=== PATIENT | male | born 1965 | race Caucasian/White ===

== ENCOUNTER 2016-06-22 09:24 | Observation (INO) | payer BC ==
[~2016-06-22] VITALS: Ht 185.4 cm; Wt 105.2 kg
[~2016-06-22 09:24] MED LIST: BP MED; BUSPAR10 MG PO; DAILY VALUE1 EACH PO; DIOVAN320 MG PO; KLONOPIN0.5 M1 PO; LEVAQUIN500 MG PO; LIDODERM 5% P1 PATCH TD; MOBIC15 MG PO; MOTRIN600 MG PO; MULTIPLE VITAM1 EACH PO; NAPROSYN500 MG PO; NAPROXEN500 MG PO; NORCO 7.5/321 TABLET PO; ONDANSETRON HCL4 MG PO; PERCOCET 5/31 TABLET PO; PREDNISONE5 M1 PO; PRILOSEC40 MG PO; SINGULAIR10 MG PO; SKELAXIN800 MG PO; TORADOL10 MG PO; TRAMADOL HCL50 MG PO; VALIUM5 MG PO; VOLTAREN75 MG PO; XANAX0.5 MG PO; XANAX1 MG PO; ZOFRAN ODT4 MG PO
[2016-06-22 10:27] LABS: HEMATOCRIT 44.8 % (38.0-50.0); MCH 29.9 PG (29.0-34.0); MCV 85.3 FL (86-99); MEAN PLAT.VOLUME 10.1 uM^3 (9.0-12.4); PLATELET COUNT 224 K/uL (156-360); RBC DIS.WIDTH-CV 12.8 % (11.8-14.6); RBC DIS.WIDTH-SD 39.5 % (39-53); RED BLOOD COUNT 5.25 M/uL (4.00-5.50); WHITE BLOOD COUNT 3.5 K/uL (4.1-10.2)
[2016-06-22 11:03] LABS: ANION GAP 8 MEQ/L (2-14); CHLORIDE 103 MEQ/L (99-109); POTASSIUM 4.3 MEQ/L (3.7-5.4); SAMPLE HEMOLYSIS CHECK 0; SAMPLE ICTERIC CHECK 0; SAMPLE LIPEMIA CHECK 0; SODIUM 138 MEQ/L (136-147)
[2016-06-22 11:08] LABS: GFR ESTIMATE (CALCULATED) > 59 mL/min/; GLUCOSE 105 mg/dL (70-99); UREA NITROGEN (BUN) 16 mg/dL (9-23)
[2016-06-22 11:11] LABS: TROP-I INTERPRETATION NEGATIVE; TROPONIN-I < 0.01 ng/mL (0.0-0.30)
[2016-06-22] MEDS ORDERED: DOXYCYCLINE MO100 MG PO (12:15)
[2016-06-22] MEDS ORDERED: LORAZEPAM0.5 MG PO (12:15)
[2016-06-22] MEDS ORDERED: DIVALPROEX SOD500 M1 PO (12:15)
[2016-06-22 13:02] LABS: HDL CHOLESTEROL 61 MG/DL (Desirable>=40); LDL CHOLESTEROL 142 mg/dL (Desirable<100); NON-HDL CHOLESTEROL 160 mg/dL (Desirable<160); TOTAL CHOLESTEROL 221 mg/dL (Desirable<200); TRIGLYCERIDES 92 MG/DL (Normal: <150)
[2016-06-22 13:30] VITALS: BP 111/79
[2016-06-22 18:18] LABS: TROP-I INTERPRETATION NEGATIVE; TROPONIN-I < 0.01 ng/mL (0.0-0.30)
[2016-06-22 18:51] LABS: Estimated Average Glucose 123 mg/dL (70-123); HEMOGLOBIN A1c (GLYCOHEMOGLOB) 5.9 % HGB (Below 5.7)
[2016-06-22 22:18] VITALS: BP 104/65
[2016-06-22 23:31] LABS: TROP-I INTERPRETATION NEGATIVE; TROPONIN-I < 0.01 ng/mL (0.0-0.30)
[2016-06-23 00:35] VITALS: BP 107/59
[2016-06-23 03:51] VITALS: BP 105/55
[2016-06-23 08:45] VITALS: BP 109/76
[2016-06-23] MEDS ORDERED: XANAX0.5 MG PO (10:29)
== END 2016-06-23 11:25 | disposition home or self-care (01) ==
LOC: EME 09:24 → EDOF 11:38 → 5WEST 12:56
PROVIDERS: Emergency Medicine; Internal Medicine
PROC: B246YZZ Ultrasonography of Right and Left Heart using Other Contrast (ICD-10-PCS; principal; 2016-06-22)
DX: R07.9 Chest pain, unspecified (principal); F41.9 Anxiety disorder, unspecified; I10 Essential (primary) hypertension; R47.01 Aphasia; Z91.041 Radiographic dye allergy status; D72.819 Decreased white blood cell count, unspecified; E66.9 Obesity, unspecified; Z91.013 Allergy to seafood; Z82.49 Family history of ischemic heart disease and other diseases of the circulatory system; Z83.3 Family history of diabetes mellitus
CPT/HCPCS: 71020; 80048; 80061; 83036; 83880; 84443; 84484; 85027; 93005; 93306; 99281; 99285; G0378; J1650; J7030

== ENCOUNTER 2016-12-17 08:57 | Inpatient (IN) | payer BC, OTHER ==
[~2016-12-17] VITALS: Ht 185.4 cm; Wt 102.3 kg
[~2016-12-17 08:57] MED LIST changes: +DIVALPROEX SOD500 M1 PO; +DOXYCYCLINE MO100 MG PO; +LORAZEPAM0.5 MG PO
[2016-12-17 09:53] LABS: EOSINOPHIL (%) 1.2 % (0-5); EOSINOPHIL COUNT 0.1 K/uL (0-0.3); HEMATOCRIT 45.4 % (38.0-50.0); IMMATURE GRANULOCYTE (%) 1.2 % (0.0-0.7); IMMATURE GRANULOCYTE COUNT 0.1 K/uL; INSTRUMENT ABS NEUTROPHIL CT 7.2 K/uL; LYMPHOCYTE COUNT 2.1 K/uL (1.0-2.8); MCHC 34.1 G/DL (30.0-36.0); MEAN PLAT.VOLUME 10.7 uM^3 (9.0-12.4); MONOCYTE (%) 8.6 % (3-12); MONOCYTE COUNT 0.9 K/uL (0-0.8); NEUTROPHIL (%) 68.7 % (45-76); NEUTROPHIL COUNT 7.2 K/uL (1.8-6.4); PLATELET COUNT 260 K/uL (156-360); RBC DIS.WIDTH-CV 12.4 % (11.8-14.6); RBC DIS.WIDTH-SD 39.8 % (39-53); RED BLOOD COUNT 5.16 M/uL (4.00-5.50); WHITE BLOOD COUNT 10.4 K/uL (4.1-10.2)
[2016-12-17 10:01] LABS: CHLORIDE 100 mEq/L (99-109); POTASSIUM 3.6 mEq/L (3.7-5.4); SODIUM 138 mEq/L (136-147)
[2016-12-17 10:02] LABS: GLUCOSE 125 mg/dL (70-99)
[2016-12-17 10:04] LABS: ANION GAP 11 MEQ/L (2-14)
[2016-12-17 10:06] LABS: GFR ESTIMATE (CALCULATED) > 59 mL/min/
[2016-12-17 10:07] LABS: UREA NITROGEN (BUN) 26 mg/dL (9-23)
[2016-12-17 12:51] LABS: TOTAL BILIRUBIN 0.8 mg/dL (0.0-1.0)
[2016-12-17 12:52] LABS: ALKALINE PHOSPHATASE 61 IU/L (3-129)
[2016-12-17 12:54] LABS: DIRECT BILIRUBIN 0.3 mg/dL (0.0-0.3)
[2016-12-17 12:55] LABS: LIPASE 244 U/L (1.0-51.0)
[2016-12-17] MEDS ORDERED: XANAX0.5 MG PO (15:41)
[2016-12-17] MEDS ORDERED: PREDNISONE10 MG PO (15:43)
[2016-12-17] MEDS ORDERED: LIORESAL10 MG PO (15:44)
[2016-12-17] MEDS ORDERED: RILUTEK50 MG PO (15:44)
[2016-12-17] MEDS ORDERED: NUEDEXTA 20-101 EACH PO (15:46)
[2016-12-17 19:58] VITALS: BP 131/85
[2016-12-17 23:50] VITALS: BP 131/87
[2016-12-18 04:15] VITALS: BP 153/79
[2016-12-18 06:20] LABS: BASOPHIL COUNT 0.1 K/uL (0-0.1); EOSINOPHIL (%) 2.6 % (0-5); EOSINOPHIL COUNT 0.2 K/uL (0-0.3); HEMATOCRIT 40.3 % (38.0-50.0); IMMATURE GRANULOCYTE (%) 0.8 % (0.0-0.7); IMMATURE GRANULOCYTE COUNT 0.1 K/uL; INSTRUMENT ABS NEUTROPHIL CT 4.2 K/uL; LYMPHOCYTE COUNT 2.2 K/uL (1.0-2.8); MCH 30.9 PG (29.0-34.0); MEAN PLAT.VOLUME 10.7 uM^3 (9.0-12.4); MONOCYTE (%) 12.4 % (3-12); MONOCYTE COUNT 0.9 K/uL (0-0.8); NEUTROPHIL COUNT 4.2 K/uL (1.8-6.4); PLATELET COUNT 218 K/uL (156-360); RBC DIS.WIDTH-CV 12.9 % (11.8-14.6); RBC DIS.WIDTH-SD 42.7 % (39-53); RED BLOOD COUNT 4.43 M/uL (4.00-5.50); WHITE BLOOD COUNT 7.6 K/uL (4.1-10.2)
[2016-12-18 07:00] LABS: ALKALINE PHOSPHATASE 56 IU/L (3-129); ANION GAP 6 MEQ/L (2-14); CHLORIDE 103 MEQ/L (99-109); GFR ESTIMATE (CALCULATED) > 59 mL/min/; LIPASE 166 U/L (1.0-51.0); POTASSIUM 4.1 MEQ/L (3.7-5.4); SAMPLE HEMOLYSIS CHECK 0; SAMPLE ICTERIC CHECK 0; SAMPLE LIPEMIA CHECK 0; SODIUM 140 MEQ/L (136-147); UREA NITROGEN (BUN) 33 mg/dL (9-23)
[2016-12-18 07:10] LABS: GLUCOSE 76 mg/dL (70-99)
[2016-12-18 07:45] VITALS: BP 120/83
[2016-12-18 11:48] VITALS: BP 147/86
[2016-12-18 15:46] VITALS: BP 137/88
[2016-12-18 20:16] VITALS: BP 128/70
[2016-12-18 21:03] LABS: POINT-OF-CARE METER ID UU14174225
[2016-12-18 23:53] VITALS: BP 143/76
[2016-12-19 04:04] VITALS: BP 122/79
[2016-12-19 06:19] LABS: ALKALINE PHOSPHATASE 59 IU/L (3-129); ANION GAP 10 MEQ/L (2-14); CHLORIDE 103 MEQ/L (99-109); DIRECT BILIRUBIN 0.3 mg/dL (0.0-0.3); GFR ESTIMATE (CALCULATED) > 59 mL/min/; GLUCOSE 82 mg/dL (70-99); LIPASE 128 U/L (1.0-51.0); POTASSIUM 3.9 MEQ/L (3.7-5.4); SAMPLE HEMOLYSIS CHECK 0; SAMPLE ICTERIC CHECK 0; SAMPLE LIPEMIA CHECK 0; SODIUM 139 MEQ/L (136-147); TOTAL BILIRUBIN 1.2 MG/DL (0.0-1.0); UREA NITROGEN (BUN) 26 mg/dL (9-23)
[2016-12-19 07:55] VITALS: BP 124/83
[2016-12-19 11:39] VITALS: BP 124/83
== END 2016-12-19 13:46 | disposition home or self-care (01) | DRG 439 ==
LOC: EME 08:57 → ENRESERV 14:19 → EDOF 14:20 → 5SOUTH 14:20 → EDOF 14:25 → ENRESERV 14:55 → 5SOUTH 16:27 → ENPENDDIS 12-19 → 5SOUTH 12-19 13:46
PROVIDERS: Emergency Medicine; Hospitalist; Internal Medicine; Physician Assistant
DX: K85.90 Acute pancreatitis without necrosis or infection, unspecified (principal); G12.21 Amyotrophic lateral sclerosis; F41.9 Anxiety disorder, unspecified; E78.5 Hyperlipidemia, unspecified; G40.909 Epilepsy, unspecified, not intractable, without status epilepticus; I10 Essential (primary) hypertension; K21.9 Gastro-esophageal reflux disease without esophagitis; Z87.442 Personal history of urinary calculi
CPT/HCPCS: 71250; 73030; 74176; 80048; 80053; 80076; 82948; 83690; 85025; 92610 GN; 94660; 99202; 99281; 99284; J1644; J1885; J7030; J7512

== ENCOUNTER 2017-01-21 15:36 | Emergency (ER) | payer OTHER, BC ==
[~2017-01-21] VITALS: Ht 188 cm; Wt 102.0 kg
[~2017-01-21 15:36] MED LIST changes: +LIORESAL10 MG PO; +NUEDEXTA 20-101 EACH PO; +PREDNISONE10 MG PO; +RILUTEK50 MG PO
[2017-01-21] MEDS ORDERED: DUONEB 2.5-0.5 M3 ML AEROSOL ×2 (18:52→19:48)
[2017-01-21] MEDS ORDERED: LEVAQUIN750 MG PO ×2 (18:53→19:48)
[2017-01-21 19:58] VITALS: BP 142/109
== END 2017-01-21 19:58 | disposition home or self-care (01) ==
LOC: EME 15:36 → EXP 15:36
DX: J18.9 Pneumonia, unspecified organism (principal); R13.10 Dysphagia, unspecified; G12.21 Amyotrophic lateral sclerosis; I10 Essential (primary) hypertension; Z87.442 Personal history of urinary calculi; E78.5 Hyperlipidemia, unspecified
CPT/HCPCS: 71020; 94640; 99281; 99283